=== PATIENT | male | born 1985 | race African-American/Black ===

== ENCOUNTER 2021-11-25 19:25 | Emergency (ER) | payer MEDICARE, MEDICAID ==
[~2021-11-25] VITALS: Ht 167.6 cm; Wt 97.0 kg
[2021-11-25] MEDS ORDERED: IPRATROPIUM BROMIDE (0.02%) 0.5MG/2.5ML NEB HHN STA (20:59)
[2021-11-25] MEDS ORDERED: PREDNISONE 20MG TABLET PO STA (20:59)
[2021-11-25] MEDS ORDERED: ALBUTEROL (0.083%) 2.5MG/3ML NEB HHN STA ×2 (20:59→23:49)
[2021-11-25] MEDS ORDERED: FAMOTIDINE 20MG TABLET PO ONE (21:15)
[2021-11-25] MEDS ORDERED: DIPHENHYDRAMINE 25MG CAPSULE PO ONE (21:15)
[2021-11-25] MEDS ORDERED: METHYLPREDNISOLONE SOD SUCC 125 MG/2 ML VIAL IV ONE (21:30)
[2021-11-25] MEDS ORDERED: FAMOTIDINE 20MG/2ML VIAL IV ONE (21:30)
[2021-11-25] MEDS ORDERED: SODIUM CHLORIDE 0.9% 1,000 ML IV ONE (21:30)
[2021-11-25] MEDS ORDERED: DIPHENHYDRAMINE 50MG/ML VIAL IV ONE (21:30)
[2021-11-25 22:41] LABS: BASOPHILS % 0.8 % (0.0-2.0); EOSINOPHILS % 2.6 % (0.0-5.0); HEMATOCRIT. 42.9 % (42.0-52.0); HEMOGLOBIN. 14.2 g/dL (14.0-18.0); LYMPHOCYTES % 21.4 % (20.0-50.0); MEAN CORPUSCULAR HEMOGLOBIN 28.7 pg (28.0-32.0); MEAN CORPUSCULAR VOLUME 86.6 fL (80.0-94.0); MEAN PLATELET VOLUME 8.6 fl (7.4-10.4); MONOCYTES % 8.2 % (2.0-8.0); PLATELET 193 x1000/uL (130-400); RED BLOOD CELL COUNT 4.95 mill/uL (4.7-6.1); RED CELL DISTRIBUTION WIDTH 13.4 % (11.6-14.6)
[2021-11-25 22:50] LABS: CHLORIDE 107 mEq/L (98-107)
[2021-11-26] MEDS ORDERED: DIPH25CA83 MT (00:06)
[2021-11-26] MEDS ORDERED: P20 MT (00:06)
[2021-11-26] MEDS ORDERED: ALBU6.7H9 INH (00:06)
[2021-11-26 00:13] VITALS: BP 127/74
== END 2021-11-26 00:35 | disposition home or self-care (01) ==
LOC: ER 19:25
DX: J45.901 Unspecified asthma with (acute) exacerbation (principal); F20.9 Schizophrenia, unspecified; F43.10 Post-traumatic stress disorder, unspecified; Z98.890 Other specified postprocedural states; Z91.013 Allergy to seafood
CPT/HCPCS: 36415; 71045; 80053; 85025; 94640; 96361; 96374; 96375; 99285; J1200; J2930; J3490; J7030